=== PATIENT | male | born 1970 | race Caucasian/White ===

== ENCOUNTER 2019-05-21 04:11 | Emergency (ER) | payer MEDICARE, MEDICAID ==
[2019-05-21] MEDS ORDERED: ALBUTEROL SULFATE HFA (90 MCG/PUFF) 8 GM MDI (1 MDI/ER DISP) IH ONE (04:27)
--- NOTE | 2019-05-21 05:17 | RADIOLOGY REPORT (SQ) ---
EXAM DESCRIPTION: XR CHEST 2 VIEWS COMPLETED DATE/TME: 05/21/2019 04:27 CLINICAL HISTORY: 48 years Male, cough, SOB, wheezing COMPARISON: None. NUMBER OF VIEWS/TECHNIQUE: 2, Frontal, Lateral FINDINGS: Increased lung volume, clear parenchyma, normal cardiac silhouette, and intact bony thorax. IMPRESSION: No acute cardiopulmonary findings.
--- NOTE | 2019-05-21 05:19 | ER Document Report ---
ED General - General Chief Complaint: Cough Stated Complaint: COUGH Time Seen by Provider: 05/21/19 04:15 Primary Care Provider: FLAVIO DAVE MD [Primary Care Provider] - Follow up as needed Notes: 48-year-old male brought in by private vehicle presents the emergency department complaining of 1 day of cough, wheezing and shortness of breath. Denies any chest pain, denies any fevers, sweats or chills. Denies any sent travel. States that he is only left the house in order to go get groceries or go see a doctor. Denies any contact with any body who he knows to be ill. Last travel was to [place] 4 weeks ago. Does not have a history of wheezing. TRAVEL OUTSIDE OF THE [place] IN LAST 30 DAYS: No - Related Data Allergies/Adverse Reactions: gabapentin [From Neurontin] Allergy (Verified 05/21/19 04:15) [id number] Antimigraine Agents Allergy (Verified 05/21/19 04:15) Past Medical History - General Information source: Patient - Social History Smoking Status: Former Smoker - Quit in 2003. Frequency of alcohol use: Rare Drug Abuse: None Family History: Reviewed & Not Pertinent Patient has suicidal ideation: No Patient has homicidal ideation: No - Past Medical History Cardiac Medical History: Reports: Hx Hypertension Pulmonary Medical History: Reports: Hx Asthma Endocrine Medical History: Reports: Hx Diabetes Mellitus Type 2 GI Medical History: Reports: Hx Gastroesophageal Reflux Disease - Immunizations Hx Diphtheria, Pertussis, Tetanus Vaccination: Yes Review of Systems - Review of Systems Constitutional: No symptoms reported. denies: Chills, Diaphoresis, Fever, Malaise, Weakness EENT: No symptoms reported Cardiovascular: No symptoms reported. denies: Chest pain Respiratory: See HPI, Cough, Short of breath, Wheezing Gastrointestinal: No symptoms reported -: Yes All other systems reviewed and negative Physical Exam - Vital signs Vitals: Temp Pulse Resp BP Pulse Ox 98.5 F 87 16 158/73 H 100 05/21/19 04:19 05/21/19 04:19 05/21/19 04:19 05/21/19 04:19 05/21/19 04:19 Interpretation: Hypertensive - Notes Notes: GENERAL: Alert, interacts well. No acute distress. Obese. HEAD: Normocephalic, atraumatic EYES: Pupils equal, round and reactive to light, extraocular movements intact. ENT: Oral mucosa moist, tongue midline. NECK: Full range of motion, supple, trachea midline. LUNGS: Clear to auscultation bilaterally, no wheezes, rales or rhonchi, no respiratory distress. Occasional dry cough. HEART: Regular rate and rhythm, no murmurs, gallops, rubs. ABDOMEN: Soft, nontender, nondistended, bowel sounds present in all 4 quadrants. EXTREMITIES: Moves all 4 extremities spontaneously, no edema. No cyanosis. NEUROLOGICAL: Alert and oriented x3, normal speech. PSYCH: Normal mood, normal affect. SKIN: Warm, Dry, normal turgor, no rashes or lesions noted. Course - Re-evaluation Re-evalutation: 05/21/19 05:38 Patient states he feels much better after using the inhaler with the spacer. Repeat examination only shows wheezing when he coughs, patient is still in no distress. Chest x-ray shows no acute process. Patient does not meet testing criteria for COVID-19. Patient will be discharged home. - Vital Signs Vital signs: Temp Pulse Resp BP Pulse Ox 98.5 F 87 16 158/73 H 100 05/21/19 04:19 05/21/19 04:19 05/21/19 04:19 05/21/19 04:19 05/21/19 04:19 Discharge - Discharge Clinical Impression: Cough, Wheezing without diagnosis of asthma Condition: Stable Disposition: HOME, SELF-CARE Additional Instructions: You likely have a viral infection that is causing your cough. Please use the inhaler 2 puffs every 4 hours using the spacer as needed to decrease your cough or sensation of shortness of breath. Your chest x-ray did not show any signs of pneumonia. I cannot tell you exactly what viral infection is causing your cough. We did not test you for coronavirus (COVID 19) today as you do not have any known high risk contacts or travel history. You should still continue to isolate yourself from others and not go out in public until all of your symptoms have resolved. If your cough worsens, your shortness of breath worsens, you develop new or concerning symptoms or you feel incredibly winded after just walking across the room please return to the emergency department. Referrals: FLAVIO DAVE MD [Primary Care Provider] - Follow up as needed
[2019-05-21 05:52] VITALS: BP 147/77
== END 2019-05-21 05:54 | disposition home or self-care (01) ==
LOC: ER 04:11
DX: R05 Cough (principal); R06.2 Wheezing; R06.02 Shortness of breath; I10 Essential (primary) hypertension; E11.9 Type 2 diabetes mellitus without complications; Z88.6 Allergy status to analgesic agent; Z87.891 Personal history of nicotine dependence
CPT/HCPCS: 99283; 71046; A9270; J3490